=== PATIENT | female | born 1990 | race African-American/Black ===

== ENCOUNTER 2020-01-08 07:58 | Emergency (ER) | payer BC ==
[~2020-01-08] VITALS: Ht 165.1 cm; Wt 54.0 kg
--- NOTE | 2020-01-08 08:15 | NUR ---
BED 3 PT BIB SELF STATES THAT SHE SWALLOWED A CHICKEBN BONE AND STATED THAT ITS LODGED IN THERE. VS CHECKED. AWAITING MD FIGUEROA.
[2020-01-08] MEDS ORDERED: LIDOCAINE VISCOUS 2% UD 15 ML UDC MM ONE (08:30)
[2020-01-08] MEDS ORDERED: MAG HYDROX/AL HYDROX/SIMETH 30 ML UDC PO ONE (08:30)
[2020-01-08 08:35] LABS: BASOPHILS % (AUTO) 0.6 % (0.0-2.0); EOSINOPHILS % (AUTO) 1.6 % (0.0-6.0); HEMATOCRIT 40 % (33-45); HEMOGLOBIN 13.5 g/dL (11.5-14.8); LYMPHOCYTES # (AUTO) 1.5 /CMM (0.8-4.8); MEAN CORPUSCULAR HGB CONC 34 g/dl (31.0-36.0); MEAN CORPUSCULAR VOLUME 105 fL (82-100); MONOCYTES # (AUTO) 0.4 /CMM (0.1-1.30); MONOCYTES % (AUTO) 7.3 % (2.0-12.0); NEUTROPHILS # (AUTO) 3.1 /CMM (1.8-8.9); NEUTROPHILS % (AUTO) 60.5 % (43.0-81.0); PLATELET COUNT (AUTO) 218 /CMM (150-450); RED BLOOD CELL COUNT(AUTO) 3.84 MIL/uL (4.0-5.2); WHITE BLOOD COUNT (AUTO) 5.1 K/uL (4.3-11.0)
[2020-01-08] MEDS ORDERED: LIDOCAINE VISCOUS 2% UD 15 ML UDC ONE (08:39)
[2020-01-08] MEDS ORDERED: MAG HYDROX/AL HYDROX/SIMETH 30 ML UDC ONE (08:39)
[2020-01-08 08:42] LABS: CALCIUM, SERUM 9.4 mg/dL (8.5-10.1); CREATININE 0.9 mg/dL (0.6-1.3); POTASSIUM 3.5 mmol/L (3.5-5.1)
[2020-01-08] MEDS ORDERED: IOHEXOL-300 100 ML VIAL IV ONE (09:06)
[2020-01-08] MEDS ORDERED: IV NS 0.9% 250 ML IV ONE (09:06)
--- NOTE | 2020-01-08 10:28 | NUR ---
Patient discharged to home in stable condition. Written and verbal after care instructions given. Patient verbalizes understanding of instruction. IV removed. Catheter intact and site benign. Pressure and 4x4 applied to site. No bleeding noted.
[2020-01-08 10:29] VITALS: BP 120/85
== END 2020-01-08 11:00 | disposition home or self-care (01) ==
LOC: ER 08:06
DX: S10.11XA Abrasion of throat, initial encounter (principal); X58.XXXA Exposure to other specified factors, initial encounter; Y93.89 Activity, other specified; Y92.89 Other specified places as the place of occurrence of the external cause; Y99.8 Other external cause status
CPT/HCPCS: 36415; 70491; 80048; 85025; 99285; J7050; Q9967